=== PATIENT | male | born 1965 | race Caucasian/White ===

== ENCOUNTER 2022-06-10 22:32 | Emergency (ER) | payer MEDICAID ==
[~2022-06-10] VITALS: Ht 175.3 cm; Wt 82.0 kg
[2022-06-10] MEDS ORDERED: ACETAMINOPHEN 325MG TABLET PO ONE (23:15)
[2022-06-10] MEDS ORDERED: KETOROLAC 60MG/2ML VIAL IM ONE (23:15)
[2022-06-10] MEDS ORDERED: LIDOCAINE 5% PATCH TOP SCH (23:15)
[2022-06-10] MEDS ORDERED: DIAZEPAM 5 MG TABLET PO ONE (23:15)
[2022-06-10] MEDS ORDERED: METHOCARBAMOL 750MG TABLET PO SCH (23:15)
[2022-06-10 23:21] VITALS: BP 154/82
[2022-06-11] MEDS ORDERED: IBUP-2028 MT (03:59)
[2022-06-11] MEDS ORDERED: HYDR-4001 MT (03:59)
[2022-06-11] MEDS ORDERED: METH-653 MT (03:59)
[2022-06-11] MEDS ORDERED: LIDO1ADH23 TP (03:59)
[2022-06-12] MEDS ORDERED: DICL100G31 TP (14:15)
[2022-06-12] MEDS ORDERED: ATOR80TA PO (14:15)
[2022-06-12] MEDS ORDERED: METO25TA6 PO (14:15)
[2022-06-12] MEDS ORDERED: AMLO5TAB4 PO (14:15)
[2022-06-12] MEDS ORDERED: ASPI-1497 PO (14:15)
[2022-06-12] MEDS ORDERED: CLOP-31 PO (14:15)
== END 2022-06-11 04:22 | disposition home or self-care (01) ==
LOC: ER 22:32
DX: M43.22 Fusion of spine, cervical region (principal); M62.830 Muscle spasm of back; M54.2 Cervicalgia; M19.90 Unspecified osteoarthritis, unspecified site; I10 Essential (primary) hypertension; Z79.899 Other long term (current) drug therapy
CPT/HCPCS: 71045; 72040; 96372; 99284; J1885

== ENCOUNTER 2022-06-11 12:04 | Inpatient (IN) | payer MEDICAID ==
[~2022-06-11] VITALS: Ht 177.8 cm; Wt 87.5 kg
[~2022-06-11 12:04] MED LIST: HYDR-4001 MT; IBUP-2028 MT; LIDO1ADH23 TP; METH-653 MT
[2022-06-11] MEDS ORDERED: MORPHINE SULFATE 10 MG/ML CPJ IM ONE (13:00)
[2022-06-11 13:29] LABS: BASOPHILS % 0.5 % (0.0-2.0); EOSINOPHILS % 0.5 % (0.0-5.0); HEMATOCRIT. 38.4 % (42.0-52.0); HEMOGLOBIN. 13.1 g/dL (14.0-18.0); LYMPHOCYTES % 11.9 % (20.0-50.0); MEAN CORPUSCULAR HEMOGLOBIN 29.6 pg (28.0-32.0); MEAN CORPUSCULAR VOLUME 87.1 fL (80.0-94.0); MEAN PLATELET VOLUME 7.1 fl (7.4-10.4); MONOCYTES % 8.4 % (2.0-8.0); NEUTROPHILS % 78.7 % (40.0-76.0); PLATELET 333 x1000/uL (130-400); RED BLOOD CELL COUNT 4.41 mill/uL (4.7-6.1); RED CELL DISTRIBUTION WIDTH 14.2 % (11.6-14.6)
[2022-06-11 13:37] LABS: CHLORIDE 106 mEq/L (98-107)
[2022-06-11 13:48] LABS: ETHANOL BLOOD < 10 mg/dL
[2022-06-11] MEDS ORDERED: ONDANSETRON HCL 4MG/2ML INJ IV STA (18:39)
[2022-06-11] MEDS ORDERED: MORPHINE SULFATE 4 MG/ML CPJ (NOT FOR IM USE) IV STA (18:39)
[2022-06-11] MEDS ORDERED: SODIUM CHLORIDE 0.9% 1,000 ML IV ONE (18:45)
[2022-06-11] MEDS ORDERED: DEXAMETHASONE 4MG/ML 1ML VIAL IV ONE (18:45)
[2022-06-11 19:06] LABS: PROTHROMBIN TIME 10.6 sec (9.6-11.0)
[2022-06-11] MEDS ORDERED: ENOXAPARIN 40MG/0.4ML SYR SUBCUT SCH (20:45)
[2022-06-11] MEDS ORDERED: ACETAMINOPHEN 325MG TABLET PO PRN ×2 (20:45)
[2022-06-11] MEDS ORDERED: NALOXONE HCL 0.4MG/ML VIAL IV PRN (21:00)
[2022-06-11] MEDS ORDERED: ENOXAPARIN 30MG/0.3ML SYR SUBCUT SCH (22:00)
[2022-06-11] MEDS: HYDROCODONE/ACETAMINOPHEN 5/325MG TABLET PO PRN (22:06)
[2022-06-11] MEDS: CLONIDINE 0.1MG TABLET PO PRN (22:07)
[2022-06-12] MEDS: HYDROCODONE/ACETAMINOPHEN 5/325MG TABLET PO PRN ×3 (06:06→23:29)
[2022-06-12 08:10] LABS: *AMPHETAMINES SCREEN URINE NEGATIVE (NEGATIVE); *BARBITURATES SCREEN URINE NEGATIVE (NEGATIVE); *BENZODIAZEPINES SCREEN URINE PRESUMTIVE POSITIVE (NEGATIVE); *COCAINE SCREEN URINE PRESUMTIVE POSITIVE (NEGATIVE); CANNABINOID URINE SCREEN NEGATIVE (NEGATIVE); METHADONE URINE SCREEN NEGATIVE (NEGATIVE); OPIATES URINE SCREEN PRESUMTIVE POSITIVE (NEGATIVE); PHENCYCLIDINE URINE SCREEN NEGATIVE (NEGATIVE)
[2022-06-12] MEDS: DEXAMETHASONE 4MG/ML 1ML VIAL IV SCH ×4 (08:24→23:28)
[2022-06-12] MEDS: MORPHINE SULFATE 2 MG/ML CPJ (NOT FOR IM USE) IV PRN (09:09)
[2022-06-12 12:00] VITALS: BP 154/89
[2022-06-12] MEDS ORDERED: IPRATROPIUM/ALBUTEROL 0.5-3(2.5)MG/3ML NEB HHN PRN (12:15)
[2022-06-12] MEDS ORDERED: METO25TA6 PO (14:15)
[2022-06-12] MEDS ORDERED: ASPI-1497 PO (14:15)
[2022-06-12] MEDS ORDERED: ATOR80TA PO (14:15)
[2022-06-12] MEDS ORDERED: DICL100G31 TP (14:15)
[2022-06-12] MEDS ORDERED: AMLO5TAB4 PO (14:15)
[2022-06-12] MEDS ORDERED: CLOP-31 PO (14:15)
[2022-06-12 16:00] VITALS: BP 164/90
[2022-06-12 17:09] LABS: HEMATOCRIT. 42.1 % (42.0-52.0); HEMOGLOBIN. 14.2 g/dL (14.0-18.0); MEAN CORPUSCULAR HEMOGLOBIN 30.1 pg (28.0-32.0); MEAN CORPUSCULAR VOLUME 89.2 fL (80.0-94.0); MEAN PLATELET VOLUME 7.3 fl (7.4-10.4); PLATELET 358 x1000/uL (130-400); RED BLOOD CELL COUNT 4.72 mill/uL (4.7-6.1); RED CELL DISTRIBUTION WIDTH 14.4 % (11.6-14.6)
[2022-06-12] MEDS: CLONIDINE 0.1MG TABLET PO PRN (17:09)
[2022-06-12 17:21] LABS: CHLORIDE 102 mEq/L (98-107)
[2022-06-12 17:28] LABS: PHOSPHORUS 1.8 mg/dL (2.5-4.9)
[2022-06-12 17:49] LABS: PLATELET ESTIMATE NORMAL
[2022-06-12 18:24] VITALS: BP 158/89
[2022-06-12 20:00] VITALS: BP 136/78
[2022-06-13] VITALS: BP 169/85
[2022-06-13] MEDS: DEXAMETHASONE 4MG/ML 1ML VIAL IV SCH ×3 (06:00→17:19)
[2022-06-13] MEDS: CLONIDINE 0.1MG TABLET PO PRN (11:40)
[2022-06-13] MEDS: MORPHINE SULFATE 2 MG/ML CPJ (NOT FOR IM USE) IV PRN ×2 (11:40→16:44)
[2022-06-13] MEDS ORDERED: DICLOFENAC SODIUM 1% GEL 50GM TOP PRN (13:00)
[2022-06-13] MEDS: SENNOSIDES/DOCUSATE SOD 8.6/50MG TABLET PO SCH (16:44)
[2022-06-13 20:00] VITALS: BP 165/86
[2022-06-13] MEDS ORDERED: LEVE750T10 PO (22:26)
[2022-06-13] MEDS ORDERED: LEVETIRACETAM 500MG TABLET PO NR (22:45)
[2022-06-13] MEDS: AMLODIPINE 5MG TABLET PO SCH (23:10)
[2022-06-14] VITALS (41 sets, daily range): BP systolic 54–167; BP diastolic 19–101
[2022-06-14] MEDS: MORPHINE SULFATE 2 MG/ML CPJ (NOT FOR IM USE) IV PRN ×3 (04:07→14:45)
[2022-06-14] MEDS: DEXAMETHASONE 4MG/ML 1ML VIAL IV SCH ×4 (05:42→17:18)
[2022-06-14] MEDS: ONDANSETRON HCL 4MG/2ML INJ IV PRN (08:36)
[2022-06-14] MEDS: SENNOSIDES/DOCUSATE SOD 8.6/50MG TABLET PO SCH ×2 (08:41→16:44)
[2022-06-14] MEDS: LEVETIRACETAM 500MG TABLET PO SCH ×2 (08:41→21:30)
[2022-06-14] MEDS: AMLODIPINE 5MG TABLET PO SCH (08:41)
[2022-06-14] MEDS ORDERED: THROMBIN (BOVINE) 5000 UNITS/VIAL TOP ONE (09:59)
[2022-06-14] MEDS ORDERED: LIDOCAINE HCL/EPINEPHRINE 1%-EPI 1:100,000 20 ML VIAL ONE (10:00)
[2022-06-14] MEDS ORDERED: GENTAMICIN SULF 40MG/ML 2ML VIAL ONE (10:00)
[2022-06-14] MEDS ORDERED: LIDOCAINE 2%/EPINEPHRINE 1:200,000 20 ML VIAL INJ ONE (10:22)
[2022-06-14 11:25] LABS: HEMATOCRIT. 42.5 % (42.0-52.0); HEMOGLOBIN. 14.6 g/dL (14.0-18.0); MEAN CORPUSCULAR HEMOGLOBIN 30.4 pg (28.0-32.0); MEAN CORPUSCULAR VOLUME 88.7 fL (80.0-94.0); MEAN PLATELET VOLUME 7.8 fl (7.4-10.4); PLATELET 340 x1000/uL (130-400); RED BLOOD CELL COUNT 4.79 mill/uL (4.7-6.1); RED CELL DISTRIBUTION WIDTH 14.8 % (11.6-14.6)
[2022-06-14 11:40] LABS: PROTHROMBIN TIME 10.7 sec (9.6-11.0)
[2022-06-14] MEDS ORDERED: ONDANSETRON HCL 4MG/2ML INJ ONE (12:07)
[2022-06-14] MEDS ORDERED: SUCCINYLCHOLINE CHLORIDE 200MG/10ML IV ONE (12:07)
[2022-06-14] MEDS ORDERED: GLYCOPYRROLATE 0.2 MG/ML 2ML VIAL ONE ×2 (12:08)
[2022-06-14] MEDS ORDERED: PROPOFOL 200MG/20ML VIAL IV ONE (12:08)
[2022-06-14] MEDS ORDERED: NEOSTIGMINE METHYLSULFATE 1MG/ML 10 ML VIAL ONE (12:08)
[2022-06-14] MEDS ORDERED: ROCURONIUM BROMIDE 10MG/ML VIAL 5ML IV ONE (12:08)
[2022-06-14] MEDS ORDERED: MIDAZOLAM HCL 2 MG/2 ML VIAL ONE (12:09)
[2022-06-14] MEDS ORDERED: FENTANYL CITRATE/PF 50MCG/ML 2ML VIAL ONE ×2 (12:09→12:10)
[2022-06-14 12:36] LABS: CHLORIDE 106 mEq/L (98-107)
[2022-06-14] MEDS ORDERED: LIDOCAINE HCL 1% 50ML VIAL (10MG/ML) ONE (12:41)
[2022-06-14 12:42] LABS: PHOSPHORUS 3.3 mg/dL (2.5-4.9)
[2022-06-14] MEDS ORDERED: CEFAZOLIN SODIUM 1000MG/VIAL IV SCH (14:00)
[2022-06-14] MEDS ORDERED: HYDROMORPHONE PCA 10MG/50ML IV PRN (14:30)
[2022-06-14] MEDS ORDERED: NALOXONE INJ IV PRN (14:30)
[2022-06-14] MEDS ORDERED: ONDANSETRON INJ IV PRN (14:30)
[2022-06-14] MEDS: DEXT 5%/LACTATED RINGERS 1,000 ML IV SCH (14:45)
[2022-06-14] MEDS: NICARDIPINE 100 MG in SODIUM CHLORIDE 0.9% 60 ML IV PRN (15:09)
[2022-06-14] MEDS: CEFAZOLIN 1000MG PREMIX 50 ML IV SCH ×2 (15:10→21:31)
[2022-06-14] MEDS: MORPHINE SULFATE 4 MG/ML CPJ (NOT FOR IM USE) IV PRN (15:19)
[2022-06-15] VITALS (77 sets, daily range): BP systolic 98–198; BP diastolic 59–105
[2022-06-15] MEDS: DEXAMETHASONE 4MG/ML 1ML VIAL IV SCH ×4 (00:47→19:36)
[2022-06-15] MEDS: DEXT 5%/LACTATED RINGERS 1,000 ML IV SCH ×3 (00:47→20:00)
[2022-06-15] MEDS: CEFAZOLIN 1000MG PREMIX 50 ML IV SCH ×2 (06:23→13:57)
[2022-06-15] MEDS: NICARDIPINE 100 MG in SODIUM CHLORIDE 0.9% 60 ML IV PRN ×2 (09:00→13:59)
[2022-06-15] MEDS: LEVETIRACETAM 500MG TABLET PO SCH ×2 (09:31→20:40)
[2022-06-15] MEDS: SENNOSIDES/DOCUSATE SOD 8.6/50MG TABLET PO SCH ×2 (09:31→19:36)
[2022-06-15] MEDS: AMLODIPINE 5MG TABLET PO SCH (09:32)
[2022-06-15] MEDS: MAGNESIUM/ALUMINUM HYDROXIDE/SIMETHICONE 30ML UDC PO PRN (12:02)
[2022-06-15] MEDS ORDERED: AMLODIPINE 5MG TABLET PO NR (13:15)
[2022-06-15] MEDS ORDERED: HYDRALAZINE 20MG/ML VIAL IV PRN (13:30)
[2022-06-15] MEDS: CLONIDINE 0.1MG TABLET PO PRN ×2 (13:58→23:21)
[2022-06-15 14:26] LABS: PLATELET ESTIMATE NORMAL
[2022-06-15] MEDS ORDERED: LOSARTAN POTASSIUM 25 MG TABLET PO SCH (23:45)
[2022-06-16] VITALS (32 sets, daily range): BP systolic 107–165; BP diastolic 59–118
[2022-06-16] MEDS: MAGNESIUM/ALUMINUM HYDROXIDE/SIMETHICONE 30ML UDC PO PRN ×2 (01:10→20:47)
[2022-06-16] MEDS: AMLODIPINE 10MG TABLET PO SCH (08:43)
[2022-06-16] MEDS: SENNOSIDES/DOCUSATE SOD 8.6/50MG TABLET PO SCH ×2 (08:55→17:59)
[2022-06-16] MEDS: LEVETIRACETAM 500MG TABLET PO SCH ×2 (08:55→20:47)
[2022-06-16] MEDS ORDERED: LOSARTAN POTASSIUM 50 MG TABLET PO SCH ×2 (09:00→21:15)
[2022-06-16] MEDS: HYDRALAZINE HCL 25MG TABLET PO SCH ×2 (12:51→20:47)
[2022-06-16] MEDS: HYDROCODONE/ACETAMINOPHEN 5/325MG TABLET PO PRN (15:20)
[2022-06-16] MEDS ORDERED: HYDRALAZINE 10 MG in SODIUM CHLORIDE 0.9% 49.5 ML IV PRN (21:30)
[2022-06-16] MEDS ORDERED: NALOXONE HCL 0.4MG/ML VIAL IV PRN (21:30)
[2022-06-16] MEDS: MORPHINE SULFATE 4 MG/ML CPJ (NOT FOR IM USE) IV PRN (22:51)
[2022-06-17] VITALS: BP 143/93
[2022-06-17 04:00] VITALS: BP 129/79
[2022-06-17] MEDS: ONDANSETRON HCL 4MG/2ML INJ IV PRN (04:16)
[2022-06-17] MEDS: MORPHINE SULFATE 4 MG/ML CPJ (NOT FOR IM USE) IV PRN ×2 (06:37→11:15)
[2022-06-17] MEDS: HYDRALAZINE HCL 25MG TABLET PO SCH (09:37)
[2022-06-17] MEDS: LEVETIRACETAM 500MG TABLET PO SCH (09:37)
[2022-06-17] MEDS: SENNOSIDES/DOCUSATE SOD 8.6/50MG TABLET PO SCH (09:37)
[2022-06-17] MEDS: AMLODIPINE 10MG TABLET PO SCH (09:37)
[2022-06-17 11:15] VITALS: BP 116/71
[2022-06-17] MEDS ORDERED: HYDR-4001 PO (12:30)
[2022-06-17] MEDS ORDERED: AMLO10TA80 PO (12:30)
[2022-06-17] MEDS ORDERED: LOSA50TA3 PO (12:30)
[2022-06-17] MEDS ORDERED: DICL100G31 TP (12:30)
[2022-06-17] MEDS ORDERED: ASPI-1497 PO (12:30)
[2022-06-17] MEDS ORDERED: CLOP-31 PO (12:30)
[2022-06-17] MEDS ORDERED: KEPP500 PO (12:30)
[2022-06-17] MEDS ORDERED: ATOR80TA PO (12:30)
== END 2022-06-17 16:02 | disposition home or self-care (01) | DRG 321 ==
LOC: ER 12:31 → MICUSO 20:30 → EDBEDREQ 20:32 → EDBEDREQTM 20:32 → SUPCPDRO 20:38 → 7EST 06-12 11:22 → MICUSO 06-14 14:15 → 6EST 06-16 15:50
PROVIDERS: ADMIT Internal Medicine; ATTEND Internal Medicine
PROC: 0RG10K0 Fusion of Cervical Vertebral Joint with Nonautologous Tissue Substitute, Anterior Approach, Anterior Column, Open Approach (ICD-10-PCS; principal; 2022-06-14)
PROC: 00NW0ZZ Release Cervical Spinal Cord, Open Approach (ICD-10-PCS; 2022-06-14)
PROC: 0RB30ZZ Excision of Cervical Vertebral Disc, Open Approach (ICD-10-PCS; 2022-06-14)
PROC: 4A11X4G Monitoring of Peripheral Nervous Electrical Activity, Intraoperative, External Approach (ICD-10-PCS; 2022-06-14)
PROC: 01N10ZZ Release Cervical Nerve, Open Approach (ICD-10-PCS; 2022-06-14)
DX: M48.02 Spinal stenosis, cervical region (principal); G82.50 Quadriplegia, unspecified; E44.1 Mild protein-calorie malnutrition; M50.01 Cervical disc disorder with myelopathy, high cervical region; M48.04 Spinal stenosis, thoracic region; G95.9 Disease of spinal cord, unspecified; M47.12 Other spondylosis with myelopathy, cervical region; E78.5 Hyperlipidemia, unspecified; I10 Essential (primary) hypertension; I25.10 Atherosclerotic heart disease of native coronary artery without angina pectoris; W19.XXXA Unspecified fall, initial encounter; M47.22 Other spondylosis with radiculopathy, cervical region; M50.11 Cervical disc disorder with radiculopathy, high cervical region; S13.4XXA Sprain of ligaments of cervical spine, initial encounter; Z20.822 Contact with and (suspected) exposure to COVID-19; G89.29 Other chronic pain; G40.909 Epilepsy, unspecified, not intractable, without status epilepticus; F14.10 Cocaine abuse, uncomplicated; Z86.73 Personal history of transient ischemic attack (TIA), and cerebral infarction without residual deficits; Z95.5 Presence of coronary angioplasty implant and graft; Z87.891 Personal history of nicotine dependence; Z79.899 Other long term (current) drug therapy; Z68.27 Body mass index [BMI] 27.0-27.9, adult; Z79.02 Long term (current) use of antithrombotics/antiplatelets; Y93.89 Activity, other specified; Y92.89 Other specified places as the place of occurrence of the external cause; Y99.8 Other external cause status
CPT/HCPCS: 36415; 72040; 72141; 76000; 80048; 80053; 80305; 80320; 83036; 83735; 84100; 84484; 85025; 86850; 86900; 87426; 88304; 88311; 93005; 93306; 93970; 95863; 95925; 95926; 95928; 95929; 97116; 97162; 97530; 97535; 99285; C1713; C9803; J0330; J0360; J0690; J1100; J1170; J1580; J2250; J2270; J2405; J2704; J2710; J3010; J3490; J7030; J7050; J7121; L0172; C1762; G0480